=== PATIENT | male | born 1985 | race Caucasian/White ===

== ENCOUNTER → 2016-11-29 | Outpatient (CLI) | payer MEDICARE, MEDICAID ==
[2016-11-29 09:58] LABS: ABSOLUTE BASOPHILS # (AUTO) 0.1 10^3/uL (0.0-0.2); ABSOLUTE EOSINOPHILS # (AUTO) 1.1 10^3/uL (0.0-0.6); ABSOLUTE LYMPHOCYTES (AUTO) 3.1 10^3/uL (0.5-4.7); ABSOLUTE MONOCYTES (AUTO) 0.6 10^3/uL (0.1-1.4); ABSOLUTE NEUT (AUTO) 6.1 10^3/uL (1.7-8.2); BASOPHILS % (AUTO) 1.1 % (0-2); EOSINOPHILS % (AUTO) 9.8 % (0-6); HEMATOCRIT 49.8 % (37.9-51.0); HEMOGLOBIN 16.9 g/dL (13.5-17.0); HGB HCT DIFFERENCE 0.9; LYMPHOCYTES % (AUTO) 28.1 % (13-45); MEAN CORPUSCULAR HEMOGLOBIN 30.2 pg (27.0-33.4); MEAN CORPUSCULAR VOLUME 89 fl (80-97); MONOCYTES % (AUTO) 5.3 % (3-13); RED BLOOD COUNT 5.61 10^6/uL (4.35-5.55); RED CELL DISTRIBUTION WIDTH 13.3 % (11.5-14.0); SEGMENTED NEUTROPHILS % (AUTO) 55.7 % (42-78)
[2016-11-29 10:21] LABS: ALANINE AMINOTRANSFERASE 67 U/L (21-72); ALBUMIN 4.3 g/dL (3.5-5.0); ALKALINE PHOSPHATASE 75 U/L (38-126); ANION GAP 13 (5-19); ASPARTATE AMINO TRANSFERASE 32 U/L (17-59); BILIRUBIN,DIRECT 0.2 mg/dL (0.0-0.4); BILIRUBIN,TOTAL 0.7 mg/dL (0.2-1.3); BLOOD UREA NITROGEN 18 mg/dL (7-20); CALCIUM 9.7 mg/dL (8.4-10.2); CARBON DIOXIDE 25 mmol/L (22-30); CHLORIDE 107 mmol/L (98-107); CHOLESTEROL 135.29 mg/dL (0-200); CREATININE RESULT 0.93 mg/dL (0.52-1.25); Direct HDL 30 mg/dL (>40); GLUCOSE 104 mg/dL (75-110); POTASSIUM 4.3 mmol/L (3.6-5.0); SODIUM 144.8 mmol/L (137-145); TOTAL PROTEIN 6.7 g/dL (6.3-8.2); TRIGLYCERIDES 172 mg/dL (<150)
[2016-11-29 10:32] LABS: DIRECT LDL 73 mg/dL (<100)
[2016-11-29 11:23] LABS: FOLATE 9.22 ng/mL (>2.76)
[2016-11-29 11:26] LABS: VALPROIC ACID < 10.0 ug/mL (50.0-120.0); VLDL CHOLESTEROL 34.4 mg/dL (10-31)
== END ==
LOC: OD 09:11
PROVIDERS: ATTEND Physician Assistant
DX: F25.9 Schizoaffective disorder, unspecified (principal); Z79.899 Other long term (current) drug therapy
CPT/HCPCS: 36415; 80053; 80061; 80164; 82746; 84146; 85025

== ENCOUNTER 2017-09-12 00:22 | Emergency (ER) | payer MEDICARE, MEDICAID ==
[2017-09-12] MEDS ORDERED: ZIPRASIDONE MESYLATE INJ/PF 20 MG SDV IM ONE (00:28)
--- NOTE | 2017-09-12 00:37 | ER Document Report ---
ED Psych Disorder / Suicide - General Chief Complaint: Psych Problem Stated Complaint: PSYCH PROBLEM Time Seen by Provider: 09/12/17 00:26 Information source: Law Enforcement TRAVEL OUTSIDE OF THE [place] IN LAST 30 DAYS: No - HPI Notes: 32-year-old male with reported history of schizophrenia presents with law enforcement. He cannot give me any significant history. Mother contacted law enforcement and family integrative services as the patient all week has been manic not taking his medications has had erratic behavior. Law enforcement states he has not had any homicidal suicidal ideations but has been somewhat aggressive and required some restraint when they were placing handcuffs on the patient and bringing him to the Emergency Department. He apparently has been yelling out at home not sleeping. No enforcement states they were able to calm him initially that he would start yelling and cursing. IVC papers are apparently in route to the emergency department for the patient which seems appropriate. Reviewing records, I see no prior psychiatric evaluation at this facility. - Related Data Allergies/Adverse Reactions: No Known Allergies Allergy (Unverified 09/12/17 00:44) Past Medical History - Social History Smoking Status: Current Every Day Smoker Family History: Reviewed & Not Pertinent Physical Exam - Vital signs Vitals: Pulse Resp BP Pulse Ox 120 H 22 H 120/67 99 09/12/17 00:44 09/12/17 00:44 09/12/17 00:44 09/12/17 00:44 Notes: See nurse's notes. - Notes Notes: GENERAL: VS as per nursing doc. Well-appearing, well-nourished somewhat agitated male. He is in handcuffs with police in attendance. HEAD: Atraumatic, normocephalic EYES: Pupils equal round and reactive to light, extraocular movements intact, sclera anicteric, patient has been tearful has injected conjunctivae but no purulent discharge. ENT: Nares patent, oropharynx clear without exudates, moist mucous membranes. NECK: Normal range of motion, supple without lymphadenopathy. LUNGS: Breath sounds clear to auscultation bilaterally and equal. No wheezes rales or rhonchi. HEART: Tachycardic with regular rhythm without murmurs. Peripheral pulses equal. ABDOMEN: Soft, non-tender. BACK: Normal to inspection EXTREMITIES: Normal appearance without edema. NEUROLOGICAL: Cranial nerves grossly intact. Normal speech. Normal sensory and motor exams. No gross cerebellar abnormalities. PSYCH: Patient requires redirection and seems very paranoid. States he does not feel he should be interrogated and that he is a human. No obvious evidence of visual or auditory hallucinations. Anxious. SKIN: Warm, dry. No lacerations. Course - Vital Signs Vital signs: Temp Pulse Resp BP Pulse Ox 120 H 22 H 120/67 99 09/12/17 00:44 09/12/17 00:44 09/12/17 00:44 09/12/17 00:44 - Laboratory Result Diagrams: 09/12/17 01:10 09/12/17 01:10 - EKG Interpretation by [facility] EKG shows normal: Sinus rhythm - Heart rate 98, normal sinus rhythm, normal QRS , normal intervals. Slight J-point elevation.
[2017-09-12 01:22] LABS: ABSOLUTE BASOPHILS # (AUTO) 0.1 10^3/uL (0.0-0.2); ABSOLUTE EOSINOPHILS # (AUTO) 0.7 10^3/uL (0.0-0.6); ABSOLUTE LYMPHOCYTES (AUTO) 2.7 10^3/uL (0.5-4.7); ABSOLUTE MONOCYTES (AUTO) 0.7 10^3/uL (0.1-1.4); ABSOLUTE NEUT (AUTO) 9.2 10^3/uL (1.7-8.2); BASOPHILS % (AUTO) 0.5 % (0-2); EOSINOPHILS % (AUTO) 5.6 % (0-6); HEMOGLOBIN 15.3 g/dL (13.5-17.0); LYMPHOCYTES % (AUTO) 20.4 % (13-45); MEAN CORPUSCULAR HEMOGLOBIN 30.3 pg (27.0-33.4); MEAN CORPUSCULAR HGB CONC 33.9 g/dL (32.0-36.0); MEAN CORPUSCULAR VOLUME 90 fl (80-97); MONOCYTES % (AUTO) 5.4 % (3-13); PLATELET COUNT 172 10^3/uL (150-450); RED BLOOD COUNT 5.03 10^6/uL (4.35-5.55); RED CELL DISTRIBUTION WIDTH 13.8 % (11.5-14.0); SEGMENTED NEUTROPHILS % (AUTO) 68.1 % (42-78); TOTAL CELLS COUNTED % (AUTO) 100 %; WHITE BLOOD COUNT 13.5 10^3/uL (4.0-10.5)
[2017-09-12 01:35] LABS: ALANINE AMINOTRANSFERASE 61 U/L (21-72); ALBUMIN 4.2 g/dL (3.5-5.0); ALKALINE PHOSPHATASE 78 U/L (38-126); ANION GAP 12 (5-19); ASPARTATE AMINO TRANSFERASE 57 U/L (17-59); BILIRUBIN,DIRECT 0.3 mg/dL (0.0-0.4); BLOOD UREA NITROGEN 20 mg/dL (7-20); CARBON DIOXIDE 22 mmol/L (22-30); CHLORIDE 106 mmol/L (98-107); GLUCOSE 76 mg/dL (75-110); POTASSIUM 4.1 mmol/L (3.6-5.0); SODIUM 139.7 mmol/L (137-145); TOTAL PROTEIN 6.4 g/dL (6.3-8.2)
[2017-09-12 01:37] LABS: ACETAMINOPHEN < 10 ug/mL (10-30); ALCOHOL < 10 mg/dL (NONE DETECTED); SALICYLATE < 1.0 mg/dL (2.0-20.0)
[2017-09-12] MEDS ORDERED: LORAZEPAM INJ 2 MG/1 ML VIAL ONE (06:40)
[2017-09-12] MEDS ORDERED: LORAZEPAM INJ 2 MG/1 ML VIAL IM ONE (06:44)
[2017-09-12] MEDS ORDERED: BENZTROPINE MESYLATE 1 MG TABLET PO SCH ×2 (08:00→11:00)
[2017-09-12] MEDS ORDERED: RISPERIDONE 1 MG TABLET PO SCH ×2 (08:00→22:00)
[2017-09-12] MEDS ORDERED: DIVALPROEX SODIUM 500 MG TAB.SR.24H PO SCH (08:00)
[2017-09-12 09:01] LABS: APPEARANCE,URINE SLIGHTLY-CLOUDY; BILIRUBIN,URINE NEGATIVE (NEGATIVE); COLOR,URINE YELLOW; GLUCOSE, URINE NEGATIVE (NEGATIVE); KETONES,URINE 20 mg/dL (NEGATIVE); LEUKOCYTE ESTERASE,URINE NEGATIVE (NEGATIVE); NITRITE,URINE NEGATIVE (NEGATIVE); PROTEIN,URINE NEGATIVE (NEGATIVE); URINE SPECIFIC GRAVITY 1.019; UROBILINOGEN,URINE NEGATIVE mg/dL (<2.0)
[2017-09-12 09:18] LABS: URINE AMPHETAMINES SCREEN NEGATIVE; URINE BARBITURATES SCREEN NEGATIVE; URINE BENZODIAZEPINES SCREEN NEGATIVE; URINE COCAINE SCREEN NEGATIVE; URINE MARIJUANA (THC) SCREEN NEGATIVE; URINE METHADONE SCREEN NEGATIVE; URINE PHENCYCLIDINE SCREEN NEGATIVE
--- NOTE | 2017-09-12 09:46 | EKG REPORT ---
SEVERITY:- BORDERLINE ECG - SINUS RHYTHM BORDERLINE INFERIOR Q WAVES : Confirmed by: Doreen Mayberry 12-Sep-2017 09:44:58
[2017-09-12] MEDS ORDERED: OLANZAPINE INJ/PF 10 MG SDV IM PRN (10:57)
[2017-09-12] MEDS ORDERED: DIVALPROEX SODIUM 250 MG TABLET.DR PO SCH (11:00)
[2017-09-12 13:57] VITALS: BP 116/64
--- NOTE | 2017-09-12 19:04 | ER Document Report ---
Doctor's Note Notes: 09/12/17 19:03 Patient is paranoid schizophrenic who is out of his medications, still quite agitated and tearful. Continues to be involuntarily committed, has been accepted at inpatient psychiatric facility. Declined a NicoDerm patch. Started on medications. [facility] department did come in to transport the patient. 09/12/17 19:04 When I examined him this morning around 9:30 AM he was able to stand without difficulty, heart had regular rate and rhythm with no murmurs gallops or rubs, lungs were clear to auscultation bilaterally.
[2017-09-13] MEDS ORDERED: RISPERIDONE 1 MG TABLET PO SCH (08:00)
== END 2017-09-12 14:04 ==
LOC: ER 00:22
DX: F20.0 Paranoid schizophrenia (principal); F17.200 Nicotine dependence, unspecified, uncomplicated; R00.0 Tachycardia, unspecified; Z91.14 Patient's other noncompliance with medication regimen
CPT/HCPCS: 93005; 99284; 96372; 36415; 80307 ×4; 85025; 80053; 81001; 80164; 93010; A9270 ×3; J3486